=== PATIENT | male | born 1950 | race Caucasian/White ===

== ENCOUNTER 2023-01-11 09:47 | Outpatient (CLI) | payer MEDICARE, BC, SELFPAY | END 2023-01-11 09:48 | disposition home or self-care (01) | PROVIDERS: PCP Internal Medicine; Visit Provider Family Medicine | DX: E11.9 Type 2 diabetes mellitus without complications (principal); I10 Essential (primary) hypertension; E78.5 Hyperlipidemia, unspecified; E66.9 Obesity, unspecified; Z13.0 Encounter for screening for diseases of the blood and blood-forming organs and certain disorders involving the immune mechanism; Z13.21 Encounter for screening for nutritional disorder; Z13.29 Encounter for screening for other suspected endocrine disorder; R97.20 Elevated prostate specific antigen [PSA] | CPT/HCPCS: 80053; 80061; 82607; 84153; 84443 ==

== ENCOUNTER 2023-03-09 08:20 | Outpatient (CLI) | payer MEDICARE, BC, SELFPAY | END 2023-03-09 08:21 | disposition home or self-care (01) | LOC: NFLDREF 03-10 15:26 | PROVIDERS: PCP Internal Medicine; Referring Provider Internal Medicine; Visit Provider Internal Medicine | DX: E11.9 Type 2 diabetes mellitus without complications (principal) | CPT/HCPCS: 80061 ==

== ENCOUNTER 2023-10-01 18:31 | Emergency (ER) | payer MEDICARE, BC, SELFPAY ==
[2023-10-01] VITALS (15 sets, daily range): BP systolic 168–210; BP diastolic 69–112; PULSE 62–96; RESP 20; TEMP 36.3; O2SAT 94–98; BMI 31.6
--- NOTE | 2023-10-01 18:54 | CRLHL7_ITS ---
For Patients: As a result of the Cures Act, medical imaging exams and procedure reports are released immediately into your electronic medical record. You may view this report before your referring provider. If you have questions, please contact your health care provider. INDICATION: Short of breath COMPARISON: 03/29/2020 TECHNIQUE: PA and lateral 2 view chest radiograph. FINDINGS: The lungs are well expanded. No focal consolidations. No pulmonary edema. No pleural effusion. No pneumothorax. No pneumomediastinum. Unchanged cardiomediastinal silhouette. Abandoned epicardial pacing leads. Bones: Median sternotomy wires with plate and screw fixation as well. IMPRESSION: Lungs are clear. Postoperative mediastinum. Dictated by Patricia Hua MD @ 10/01/2023 7:36:51 PM (Electronically Signed)
--- NOTE | 2023-10-01 18:56 | ED_ITS ---
HPI - General Adult General Chief complaint: Chest Pain Stated complaint: chest pain, skipped heartbeats Time Seen by Provider: 10/01/23 18:36 Source: patient Mode of arrival: ambulatory Limitations: no limitations History of Present Illness HPI narrative: 73-year-old male with a history of coronary artery disease status post stenting in 2019 presents today with palpitations. He states that his heart has been sk ipping beats since yesterday. He states the last time this occurred so frequently was right before he had a heart attack. He denies chest pain or shortness of breath. States that he does feel more fatigued than usual, but that has been going on for longer than 2 days. He denies fevers or chills. No nausea or vomiting. He denies dizziness or diaphoresis. Appetite has been normal. He denies any diarrhea or urinary symptoms. He denies coughing. Past medical history significant for coronary artery disease status post stenting, insulin-dependent type 2 diabetes, cataracts, hypertension, h yperlipidemia, reflux esophagitis. Related Data Home Medications Medication Instructions Recorded Confirmed ascorbate calcium (vitamin C) 500 500 mg PO QDAY 01/11/23 01/20/23 mg tablet calcium carbonate 500 mg calcium 500 mg PO QDAY 01/11/23 01/20/23 (1,250 mg) chewable tablet (Calcium 500) cholecalciferol (vitamin D3) 100 100 mcg PO QDAY 01/11/23 01/20/23 mcg (4,000 unit) tablet gqdduucf-kevtgmfg-hur C 250 tab PO 01/11/23 01/20/23 mg-herbal no.124 11.66 mg chewable tablet (Airborne Gummy) multivitamin with minerals-folic 1 tab PO QDAY 01/11/23 01/20/23 acid 120 mcg chewable tablet (Centrum Adult 50 Plus Fresh-Fruity) semaglutide 0.25 mg or 0.5 mg (2 0.5 mg subcut QWEEK 01/11/23 01/20/23 mg/1.5 mL) subcutaneous pen injector (Ozempic) turmeric and gerald PO 01/11/23 01/20/23 vitamin B complex 1 tab PO QDAY 01/11/23 01/20/23 zinc gluconate 50 mg tablet 50 mg PO QDAY 01/11/23 01/20/23 Previous Rx's Medication Instructions Recorded clopidogrel 75 mg tablet 75 mg PO QDAY #90 tabs 02/21/23 empagliflozin 25 mg tablet 25 mg PO QAM #90 tabs 02/21/23 (Jardiance) insulin detemir U-100 100 unit/mL 46 unit (0.46 mL) subcut QHS #45 mL 02/21/23 (3 mL) subcutaneous pen (Levemir FlexPen) losartan 25 mg tablet 25 mg PO QDAY #90 tabs 02/21/23 metoprolol succinate 100 mg 100 mg PO QDAY #90 tabs 02/21/23 tablet,extended release 24 hr rosuvastatin 20 mg tablet 20 mg PO QDAY #90 tabs 02/21/23 omeprazole 20 mg capsule,delayed 40 mg (2 x 20 mg) PO QDAY #180 caps 07/07/23 release Allergies Allergy/AdvReac Type Severity Reaction Status Date / Time No Known Allergies Allergy Unknown Unverified 01/20/23 13:01 Review of Systems Status of ROS: Reports: 10 or more systems reviewed and unremarkable except as noted in History and below [facility] Medical History 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 - Anal fistula (ICD-10) Surgical History S/P cataract extraction ?Z98.49 - Cataract extraction status, unspecified eye (ICD-10) History of tonsillectomy and adenoidectomy ?Z90.89 - Acquired absence of other organs (ICD-10) History of coronary artery stent placement (2001) ?Z95.5 - Presence of coronary angioplasty implant and graft (ICD-10) History of coronary artery bypass surgery (03/29/20) ?Z95.1 - Presence of aortocoronary bypass graft (ICD-10) Social History Smoking Status: Former smoker Do you use any of these nicotine containing products: None How often do you have a drink containing alcohol: monthly or less How often do you have six or more drinks on one occasion: Never AUDIT-C Alcohol total score: 1 Non-prescribed substance use: denies use Little interest or pleasure in doing things: not at all Feeling down, depressed, or hopeless: not at all Exam Narrative: Exam Narrative: Well-nourished well-developed patient in no acute distress. Alert and oriented. Answers questions appropriately. Mood and affect are appropriate. Thoughts are goal oriented and rational. No tangential or magical thinking noted. Patient speaks in full sentences without needing to catch his breath. He does not appear ill or toxic. HEENT: Normocephalic atraumatic. Pupils are equally round reactive to light. Extraocular muscles are intact. Conjunctivae are moist without any icterus noted. Moist mucous membranes. Posterior pharynx is normal. Neck is soft without any lymphadenopathy or thyromegaly. No masses are appreciated. Cardiovascular: Heart is regular rate, he does have multiple recurrent extra beats. S1-S2 present without any obvious murmurs. Lungs: Clear to auscultation bilaterally no wheezes rhonchi or rales are appreciated. Patient takes deep breaths without any discomfort. Abdomen: Soft and nontender, nondistended, protuberant with normal bowel sounds. No guarding or rebound. No masses or organomegaly appreciated. Very strong abdominal pulse with no bruit. Extremities: Bilateral lower extremities are without edema. Normal DP and PT pulses. Skin: Well perfused without any obvious rashes. Const: Vital Signs, click to edit/add: Vital Signs - 24 hr 10/01/23 18:40 10/01/23 18:54 10/01/23 19:18 Temperature 97.3 F L Pulse Rate 63 Pulse Rate [Pulse Oximeter] 96 Respiratory Rate 20 Blood Pressure 193/81 H Blood Pressure [Le ft Upper Arm] 210/112 H Pulse Oximetry 98 95 [facility] 10/01/23 19:26 10/01/23 19:30 10/01/23 19:33 Temperature Pulse Rate 65 72 68 Pulse Rate [Pulse Oximeter] Respiratory Rate Blood Pressure 188/69 H Blood Pressure [Le ft Upper Arm] Pulse Oximetry 97 97 96 [facility] 10/01/23 19:34 10/01/23 19:45 10/01/23 19:48 Temperature Pulse Rate 66 62 64 Pulse Rate [Pulse Oximeter] Respiratory Rate Blood Pressure 175/73 H Blood Pressure [Le ft Upper Arm] Pulse Oximetry 95 95 97 [facility] 10[facility]01/23 20:00 10/01/23 20:02 Temperature Pulse Rate 66 72 Pulse Rate [Pulse Oximeter] Respiratory Rate Blood Pressure 172/94 H Blood Pressure [Le ft Upper Arm] Pulse Oximetry 94 95 Oxygen Delivery Me thod Course Course ED Course: EKG, read by me, shows sinus rhythm in a pattern of bigeminy, pre hematuria ventricular complexes, pulse of 90. Troponin is within normal limits. Chest x-ray, read by me, shows no acute pathology. Labs are unremarkable. IV established and patient received 500 mL of normal saline. Patient did fluctuate between normal sinus rhythm and bigeminy. He remained completely asymptomatic during his stay in the ER aside from feeling extra heartbeats. Again patient is chest pain-free, no shortness of breath and no other discomfort. The last thing we did was because of his strong abdominal pulses I did do an abdominal ultrasound to look at his aorta which does look normal according to the tech, final reading pending. I did consult with Dr. Fry, slime plant operator helper at [facility], who recommended a Holter monitor and follow-up with cardiology this coming week. Patient is already on metoprolol 100 mg daily, will continue this dose for now. Discussed with patient and his are findings today and patient felt very comforted that he had normal troponins and lab work. He felt comfortable going home. He denies any feelings of doom. Vital Signs Vital signs: Initial Vital Signs Temperature 97.3 F L 10/01/23 18:40 Temperature Source Temporal Artery Scan 10/01/23 18:40 Pulse Rate 96 10/01/23 18:40 Pulse Rhythm Irregular 10/01/23 18:40 Respiratory Rate 20 10/01/23 18:40 Blood Pressure 210/112 H 10/01/23 18:40 Blood Pressure Mean 144 H 10/01/23 18:40 Blood Pressure Position Sitting 10/01/23 18:40 Pulse Oximetry 98 10/01/23 18:40 Oxygen Delivery Method Room Air 10/01/23 18:40 Vital Signs Temperature 97.3 F L 10/01/23 18:40 Pulse Rate 96 10/01/23 18:40 Respiratory Rate 20 10/01/23 18:40 Blood Pressure 210/112 H 10/01/23 18:40 Pulse Oximetry 98 10/01/23 18:40 Oxygen Delivery Method Room Air 10/01/23 18:40 Temperature 97.3 F L 10/01/23 18:40 Pulse Rate 72 10/01/23 20:02 Respiratory Rate 20 10/01/23 18:40 Blood Pressure 172/94 H 10/01/23 20:02 Pulse Oximetry 95 10/01/23 20:02 Oxygen Delivery Method Room Air 10/01/23 18:40 Medications Administered Medications: Discontinued Medications Generic Name Dose Route Start Last Admin Trade Name Pérez PRN Reason Stop Dose Admin Sodium Chloride 500 mls @ 500 mls/hr 10/01/23 18:55 10/01/23 20:05 0.9 % Sodium Chloride 500 Ml IV 10/01/23 19:54 Infused .Q1H ONE Infusion Medical Decision Making MDM Narrative Medical decision making narrative: 73-year-old male with palpitations, bigeminy and PVCs noted on workup today. The symptoms have been going on for over 24 hours. Patient will be discharged home with a 48 hour Holter monitor, continue on beta- rogerio. Follow-up with cardiology this week. Medical Records Medical records reviewed: Yes I reviewed the patient's medical records Lab Data Lab results reviewed: Yes I reviewed the patient's lab results Labs: Lab Results 10/01/23 10/01/23 10/01/23 Range/Units 18:50 18:55 19:40 WBC 10.56 (4.50-11.00) K/uL RBC 5.84 (4.30-5.90) m/uL Hgb 17.9 H (13.5-17.5) gm/dL Hct 52.8 (37.0-53.0) % MCV 90 (80-100) fL MCH 31 (26-34) pg MCHC 34 (32-36) gm/dL RDW Coeff of Mae 12.1 (11.5-15.5) % Plt Count 186 (140-440) K/uL Neut % (Auto) 42.1 (42.0-72.0) % Lymph % (Auto) 42.5 (20-44) % [place] % (Auto) 10.5 (0.0-11.0) % Eos % (Auto) 4.5 (0.0-7.0) % Baso % (Auto) 0.3 (0.0-3.0) % Neut # (Auto) 4.44 (1.7-7.0) K/uL Lymph # (Auto) 4.49 H (0.90-2.90) K/uL [place] # (Auto) 1.10 H (0.00-0.90) K/UL Eos # (Auto) 0.48 (0.00-0.50) K/uL Baso # (Auto) 0.03 (0.00-0.30) K/uL Abs Immat Gran (auto) 0.01 (0.00-0.30) K/uL Imm/Tot Granulo (auto) 0.1 % Sodium 139 (135-149) mmol/L Potassium 3.7 (3.6-5.1) mmol/L Chloride 106 (96-114) mmol/L Carbon Dioxide 23 (20-32) mmol/L Anion Gap 10 (7-15) mEq/L BUN 11 (7-30) mg/dL Creatinine 0.8 (0.5-1.5) mg/dL Estimated Creat Clear 59.67 Estimated GFR 92 ml/min Glucose 170 H (60-115) mg/dL Calcium 9.2 (8.4-10.6) mg/dL Magnesium 1.9 (1.5-2.6) mg/dL Total Bilirubin 0.8 (0.1-1.5) mg/dL Direct Bilirubin 0.0 (0.0-0.5) mg/dL AST 52 H (12-35) U/L ALT 53 H (4-50) U/L Alkaline Phosphatase 140 (40-150) U/L Troponin I 0.01 (0.01-0.04) ng/mL C-Reactive Protein < 0.5 L (0.5-1.0) mg/dL NT-Pro-B Natriuret Pep 281 pg/mL Total Protein 7.7 (6.0-8.3) g/dL Albumin 4.7 (3.3-5.0) g/dL TSH 1.730 (0.270-4.20) uIU/mL Urine Color Yellow (Yellow) Urine Appearance Clear (Clear) Urine pH 6.0 (5.0-8.5) Ur Specific [place] 1.020 (1.000-1.030) Urine Protein 2+ A (Negative) Urine Glucose (UA) 2+ A (Negative) Urine Ketones Negative (Negative) Urine Blood Trace-intact A (Negative) Urine Nitrite Negative (Negative) Urine Bilirubin Negative (Negative) Urine Urobilinogen 0.2 (0.2-1.0) Ur Leukocyte Esterase Negative (Negative) Urine RBC 0-2 (0-2) Urine WBC 0-2 (0-5) Ur Squamous Epith Cells Few (None-Few) Urine Bacteria None (None) POC Troponin I 0.02 (0.01-0.04) ng/ml Imaging Data Chest x-ray: Attestation: I have reviewed the pertinent imaging results. Radiologist's impression: PA and lateral 2 view chest radiograph. FINDINGS: The lungs are well expanded. No focal consolidations. No pulmonary edema. No pleural effusion. No pneumothorax. No pneumomediastinum. Unchanged cardiomediastinal silhouette. Abandoned epicardial pacing leads. Bones: Median sternotomy wires with plate and screw fixation as well. IMPRESSION: Lungs are clear. Postoperative mediastinum. ECG Data Attestation: I personally reviewed and interpreted this ECG as follows: Discharge Plan Discharge Clinical Impression: Palpitation, Frequent PVCs, Bigeminy Patient Disposition: Home, Self-Care Condition: Stable Additional Instructions: You will be sent home with a 48 hour heart monitor today. It is recommended that 1st thing Monday morning you call your slime plant operator helper to set up a follow-up appointment so that you are seen this week. If you develop chest pain, shortness of breath, nausea, vomiting, sweating or any other concerning symptoms you should return to the ER right away. Do your best to stay well hydrated. Prescriptions: No Action vitamin B complex Tablet 1 tab PO QDAY cholecalciferol (vitamin D3) 100 mcg (4,000 unit) tablet 100 mcg PO QDAY Centrum Adult 50 Fresh-Fruity 120 mcg tablet,chewable 1 tab PO QDAY zinc gluconate 50 mg tablet 50 mg PO QDAY Airborne Gummy 250-11.66 mg tablet,chewable PO ascorbate calcium (vitamin C) 500 mg tablet 500 mg PO QDAY calcium carbonate [Calcium 500] 500 mg calcium (1,250 mg) tablet,chewable 500 mg PO QDAY turmeric and gerald PO Ozempic 0.25 mg or 0.5 mg(2 mg/1.5 mL) pen injector 0.5 mg subcut QWEEK clopidogrel 75 mg tablet 75 mg PO QDAY Qty: 90 3RF Jardiance 25 mg tablet 25 mg PO QAM Qty: 90 3RF Levemir FlexPen 100 unit/mL (3 mL) insulin pen 46 unit subcut QHS Qty: 45 4RF losartan 25 mg tablet 25 mg PO QDAY Qty: 90 4RF metoprolol succinate 100 mg tablet extended release 24 hr 100 mg PO QDAY Qty: 90 3RF rosuvastatin 20 mg tablet 20 mg PO QDAY Qty: 90 3RF omeprazole 20 mg capsule,delayed release(DR/EC) 40 mg PO QDAY Qty: 180 1RF Follow Up/Referrals: Arpita Mast MD [Primary Care Provider] - [facility]one [facility]: [facility]
--- NOTE | 2023-10-01 19:00 | CRLHL7_ITS ---
For Patients: As a result of the Cures Act, medical imaging exams and procedure reports are released immediately into your electronic medical record. You may view this report before your referring provider. If you have questions, please contact your health care provider. Examination: US abdominal aorta Indication: Bounding abdominal pulse Technique: Rodriguez scale and color Doppler images of the aorta and common iliac arteries are obtained. Comparison: CT 03/07/2014 Findings: Proximal aorta: 2.6 x 2.8 cm Mid aorta: 1.9 x 1.8 cm Distal aorta: 1.8 x 2.1 cm Right common iliac artery: 1.3 x 1.6 cm Left common iliac artery: 1.4 x 1.4 cm Recommended imaging interval for ectatic aorta: 2.5-2.9 cm: 5 years Impression: No aneurysm. Dictated by Ho Gomez MD @ 10/01/2023 8:39:47 PM (Electronically Signed)
[2023-10-01] MEDS: 0.9 % SODIUM CHLORIDE 500 ML 500 ML IV (19:05)
[2023-10-01 19:06] LABS: Basophils Absolute Auto 0.03 K/uL (0.00-0.30); Basophils Percent Auto 0.3 % (0.0-3.0); Eosinophils Absolute Auto 0.48 K/uL (0.00-0.50); Eosinophils Percent Auto 4.5 % (0.0-7.0); Hematocrit 52.8 % (37.0-53.0); Hemoglobin* 17.9 gm/dL (13.5-17.5); Immature Granulocytes Abs Auto 0.01 K/uL (0.00-0.30); Immature Granulocytes Pct Auto 0.1 %; Lymphocytes Absolute Auto 4.49 K/uL (0.90-2.90); Lymphocytes Percent Auto 42.5 % (20-44); Mean Corpuscular HGB Conc 34 gm/dL (32-36); Mean Corpuscular Hemoglobin 31 pg (26-34); Mean Corpuscular Volume 90 fL (80-100); Monocytes Percent Auto 10.5 % (0.0-11.0); Neutrophils Absolute Auto 4.44 K/uL (1.7-7.0); Neutrophils Percent Auto 42.1 % (42.0-72.0); Platelet Count* 186 K/uL (140-440); RDW Coefficient of Variation % 12.1 % (11.5-15.5); Red Blood Count 5.84 m/uL (4.30-5.90); White Blood Count* 10.56 K/uL (4.50-11.00)
[2023-10-01 19:08] LABS: Troponin, Point-of-Care* 0.02 ng/ml (0.01-0.04)
[2023-10-01 19:08] LABS: Slide Review Reflex No
[2023-10-01 19:21] LABS: Albumin* 4.7 g/dL (3.3-5.0); Chloride* 106 mmol/L (96-114); Sodium* 139 mmol/L (135-149)
[2023-10-01 19:22] LABS: Potassium* 3.7 mmol/L (3.6-5.1)
[2023-10-01 19:23] LABS: Magnesium* 1.9 mg/dL (1.5-2.6)
[2023-10-01 19:24] LABS: Anion Gap 10 mEq/L (7-15); Aspartate Amino Transferase* 52 U/L (12-35); Bilirubin Total* 0.8 mg/dL (0.1-1.5); Carbon Dioxide* 23 mmol/L (20-32); Creatinine* 0.8 mg/dL (0.5-1.5); Est. Creatinine Clearance* 59.67; Estimated Glomerular Filt Rate 92 ml/min; Total Protein* 7.7 g/dL (6.0-8.3)
[2023-10-01 19:25] LABS: Alanine Aminotransferase* 53 U/L (4-50); Alkaline Phosphatase* 140 U/L (40-150); Blood Urea Nitrogen* 11 mg/dL (7-30); Calcium* 9.2 mg/dL (8.4-10.6); Glucose* 170 mg/dL (60-115)
[2023-10-01 19:28] LABS: C Reactive Protein* < 0.5 mg/dL (0.5-1.0)
[2023-10-01 19:36] LABS: Troponin I* 0.01 ng/mL (0.01-0.04)
--- NOTE | 2023-10-01 19:38 | ED.NURSE ---
pt report given to oncrayne RN
[2023-10-01 19:39] LABS: NT Pro B Type NatriureticPept* 281 pg/mL
[2023-10-01 19:48] LABS: Appearance Urine Clear (Clear); Bilirubin Urine Negative (Negative); Blood Urine Trace-intact (Negative); Color Urine Yellow (Yellow); Glucose Urine 2+ (Negative); Ketones Urine Negative (Negative); Leukocyte Esterase Urine Negative (Negative); Nitrite Urine Negative (Negative); Protein Urine 2+ (Negative); Urobilinogen Urine 0.2 (0.2-1.0)
[2023-10-01 19:55] LABS: RBC Urine 0-2 (0-2); Squamous Epithelial Cell Urine Few (None-Few); WBC Urine 0-2 (0-5)
== END 2023-10-01 21:20 | disposition home or self-care (01) ==
PROVIDERS: Emergency Provider Family Medicine; PCP Internal Medicine
DX: R00.2 Palpitations (principal); I49.3 Ventricular premature depolarization
CPT/HCPCS: 36415; 71046; 76775; 80048; 80076; 81001; 83735; 83880; 84443; 84484; 85025; 86140; 87086; 93005; 93225; 93226; 94761; 99284; 99285; J7030

== ENCOUNTER 2024-02-01 10:38 | Outpatient (CLI) | payer MEDICARE, BC, SELFPAY ==
--- OUTSIDE RECORDS SUMMARY | 2024-02-01 10:40 | XMS_ITS | Clinical Summary ---
Author Name Unknown Organization [employer] [facility] Address [place], [place] [address] Care Team Providers Care Rubber Stamp Assembler Name Role Phone Elliot Garber MD Primary Care Provider [phone] Allergies Active Allergy Reactions Criticality Noted Date Comments Atorvastatin *Unknown 08/14/2018 Metformin *Unknown 08/14/2018 Simvastatin *Unknown 08/14/2018 Ezetimibe GI Upset 12/07/2006 Medications Medication Sig Dispensed Refills Start Date End Date Status nitroglycerin (NITROSTAT) 0.4 mg sublingual tabletIndications:C oronary artery disease, angina presence unspecified, unspecified vessel or lesion type, unspecified whether [place] or transplanted heart Place 1 tablet under the tongue every 5 minutes if needed for Chest Pain. 100 tablet 3 01/28/2020 Active omeprazole (PRILOSEC) 20 mg Delayed-Release capsule Take 20 mg by mouth 2 times daily before meals. Active empagliflozin (JARDIANCE) 25 mg tablet Take 1/2 tablet by mouth daily Active vitamin B complex (SUPER B [id number] ORAL) Take 1 tablet by mouth once daily. Active insulin detemir U-100 (LEVEMIR FLEXTOUCH U-100 INSULN) 100 unit/mL (3 mL) penIndications:Insu jose dependent type 2 diabetes mellitus (HC) Inject 18 Units subcutaneous once daily in the evening. 3 mL 04/03/2020 Active semaglutide (OZEMPIC) 2 mg/1.5 mL (0.25mg or 0.5mg doses) pen Inject subcutaneous. 01/21/2022 Active clopidogreL (PLAVIX) 75 mg tablet Take 1 Tablet (75 mg) by mouth once daily. 0 01/20/2023 Active metoprolol succinate (Toprol XL) 100 mg Sustained-Release tablet Take 1 Tablet (100 mg) by mouth once daily. 0 01/20/2023 Active cholecalciferol (Vitamin D) 1,000 unit capsule Take 100 mcg by mouth once daily. Active mv-min/folic/K1/lyc open/lutein (CENTRUM SILVER MEN ORAL) Take 1 Tablet by mouth once daily. Active zinc gluconate 50 mg tablet Take 50 mg by mouth once daily. Active ascorbic acid, vitamin C, (Vitamin C) 500 mg tablet Take 500 mg by mouth once daily. Active calcium carbonate 500 mg calcium (1,250 mg) capsule Take 500 mg by mouth three times daily with meals. Active aljtjzby-hoindy-jdn ck pepper 125 mg-6 mg- 50 mcg chew Chew by mouth. Activ e semaglutide (Ozempic) 2 mg/1.5 mL pen Inject 0.25 mg subcutaneous once weekly. Active empagliflozin (Jardiance) 25 mg tablet Take 25 mg by mouth once daily. Active rosuvastatin (CRESTOR) 20 mg tablet Take 1 Tablet (20 mg) by mouth at bedtime. 10/04/2023 Active losartan (COZAAR) 50 mg tabletIndications:C oronary artery disease involving [place] coronary artery of [place] heart without angina pectoris Take 1.5 Tablets (75 mg) by mouth once daily. 135 Tablet 1 10/06/2023 Active spironolactone (ALDACTONE) 25 mg tabletIndications:E ssential hypertension Take 1 Tablet (25 mg) by mouth once daily. 90 Tablet 3 10/19/2023 Active Active Problems Patient Care Coordination No te Formatting of this note migh t be different from the original. HF/Structural/Prevention Research Eligibility Review Date: 09/12/19 Upcoming Visit Location: [facility] Age: 69 y.o. Insurance: Medicare HF: DNQ Structural: DNQ Prevention: Triglycerides: HDL: Non-HDL: LDL: A1c: Diabetes: Yes Prominent:Potential - Stent 2001 Problem Noted Date Diagnosed Date Coronary artery disease invo lving [place] coronary artery of [place] heart without angina pectoris 05/01/2020 Hx of CABG 05/01/2020 NSTEMI (non-ST elevated myocardial infarction) 0 03/29/2020 Insulin dependent type 2 diabetes mellitus 03/29 Cataract, nuclear sclerotic senile, right 2019 Morbid obesity due to excess calories 10/04/2019 Cataract, nuclear sclerotic senile, left 018 Unspecified essential hypertension 08/18/2007 ARTERIOSCLEROTIC HEART DISEASE/S/P STENT RCA 200 2 12/07/2006 Acute myocardial infarction of other specified sites, episode of care unspecified 12/07/2006 Pure hyperglyceridemia 12/07/2006 Reflux esophagitis 12/07/2006 Other abnormal glucose 12/07/2006 Encounters Date Type Department Care Team Description 02/01/2024 10:00 AM CDT Office Visit [facility] [place] [facility] [address] [facility] [place] [address] Sudeep López MD Arrived 11/06/2023 Telephone [facility] [address] [place] [address] [place] [address] Sudeep López MD Results 11/03/2023 1:00 PM ANIMAL HUSBANDRY MANAGER Ancillary Procedure [facility] [address] [place] [address] 11/03/2023 Travel from Last 3 Months Immunizations Name Administration Dates Next Due Tdap 08/17/2007 Family History Medical History Relation Name Comments Heart Disease Father pacemaker Coronary artery disease Mother sten ts Glaucoma Mother Relation Name Status Comments Father Mother Social History Tobacco Use Types Packs/Day Years Used Date Smoking Tobacco: Former Cigarettes 0.5 20 0 09/25/1981 - 09/25/2001 Smokeless Tobacco: Never Comments:quit in 2001 when h e had an [place] Alcohol Use Standard Drinks/Week Comments Not Currently 0 (1 standard drink = 0.6 oz pur e alcohol) occasional PHQ-2 Answer Date Recorded PHQ-2 TOTAL SCORE 0 04/21/2020 Social Connections Answer Date Recorded Frequency of Communication with Friends and Fami ly Not on file 09/25/2021 Financial Resource Strain Answer Date R ecorded Difficulty of Paying Living Expenses Not on file 09/25/2021 Difficulty of Paying Living Expenses Not on file 09/25/2021 Sex and Gender Information Value Date Recorded Sex Assigned at Not on file Gender Identity Not on file Sexual Orientation Not on file Obstetrics History Last Filed Vital Signs Vital Sign Reading Time Taken Comments Blood Pressure 159/79 04/13/2022 10:51 AM CDT Pulse 60 04/13/2022 10:51 AM CDT Temperature 36.4 ??C (97.6 ??F) 04/13/2022 10:54 AM C DT Respiratory Rate 18 04/13/2022 10:51 AM CDT Oxygen Saturation 97% 04/13/2022 10:51 AM CDT Inhaled Oxygen Concentration - - Weight 91.6 kg (202 lb) 10/18/2023 11:15 AM ANIMAL HUSBANDRY MANAGER Height 170.2 cm (5' 7) 10/18/2023 11:15 AM ANIMAL HUSBANDRY MANAGER Body Mass Index 31.64 10/18/2023 11:15 AM ANIMAL HUSBANDRY MANAGER Plan of Treatment Health Maintenance Due Date Last Done Comments Pneumococcal series for age 65+ (1 of 2 - PCV) 1954 Hepatitis C screening for ag e 18-79 1966 Colonoscopy through age 75 1993 Zoster (shingles) series for age 50+ (1 of 2) 1998 Medicare Wellness for age 65+ 2013 Tetanus booster 08/17/2017 08/17/2007 Depression screening for age 12+ 04/21/2021 04/21/20 20 COVID-19 vaccine series ( season) 2023 12/22/2020, 12/01/2020 Influenza for age 65+ 05/26/2024 BMI (ht and wt on same day) for age 18+ 10/18/2024 10/18/2023, 01/30/2020 Lipids for age 45-75 03/29/2025 03/29/2020, 04/17/2008, 08/10/2007, Additional history exists Tdap Completed 08/17/2007 Medical Devices Implanted Type Area Field Interviewer Device Identifier Shelf Expiration Date Model / Serial / Lot [id number] - [id number] Implanted:Qty: 1 on 09/06/2018 by Hugo Rosario Jr., MD at [facility] Left: Eye [employer] 02/19/2022 [id number] / [id number] / Iol Stigma +19 Tecnis [id number] Implanted:Qty: 1 on 03/25/2020 by Hugo Rosario Jr., MD at [facility] Right: Eye [employer] [facility] 03/16/2022 [id number] / [id number] / Description:Meeta orr s 19.0D SE; 1.50D cyl Screw Sternal 2.4x16mm Sternalock [employer] - [id number] Implanted:Qty: 16 on 03/29/2020 by Rama Iglesias MD at [facility] N/A: Sternum [employer] [id number] / / Screw Sternal 2.4x18mm Sternalock [employer] - [id number] Implanted:Qty: 8 on 03/29/2020 by Rama Iglesias MD at [facility] N/A: Sternum [employer] [id number] / / Plate Sternal X 8 Hole Sternalock - [id number] Implanted:Qty: 3 on 03/29/2020 by Rama Iglesias MD at [facility] N/A: Sternum [employer] [id number]# / / Procedures Procedure Name Priority Date/Time Associated Diagnosis Comments ECHO TTE COMPLETE WO CONTRAST Routine 11/03/2023 1:34 PM ANIMAL HUSBANDRY MANAGER Coronary artery disease involving [place] coronary artery of [place] heart without angina pectoris Hx of CABG LIPID PANEL Early AM 03/29/2020 5:22 AM CDT from Last 3 Months or Most Recently Relevant to Health Maintenance Results * ECHO TTE COMPLETE WO CONTRAST (11/03/2023 1:34 PM ANIMAL HUSBANDRY MANAGER) AORTIC VALVE MEAN PG 6 mmHg EJECTION FRACTION 60 % LVEDD 4.8 cm EJECTION FRACTION 50 - 55% Anatomical Region Laterality Modality Ultrasound 11/03/2023 12:5 4 PM ANIMAL HUSBANDRY MANAGER Narrative 11/03/2023 2:01 PM ANIMAL HUSBANDRY MANAGER ECHOCARDIOGRAM DEBBIE AMEZCUA ?Accession#: ?? [id number] : ?1950 73 years Study Date: ?? 11/03/2023 12:54:17 PM Gender: M ? BP: ? 191/80 mmHg Height: 170.00 cm ? BSA: ?2.03 m? ? ? Weight: 92.00 kg ?Tech: ? MJJ ?Referring MD: SUDEEP LÓPEZ Site: ? [facility] Reading Location: MOBILE-OP Patient Location: Outpatient. Procedure: 2D, Color Doppler and Spectral Doppler. Indication for study: Coronary artery disease involving [place] coronary artery of [place] heart without angina pectoris; Hx of CABG Cardiac Rhythm: Irregular.Study quality: Technically limited. Final Impressions: 1. Technically limited exam. 2. Normal LV size, normal wall thickness, mildly reduced global systolic function with an estimated EF of 50 - 55%. 3. Right ventricular cavity size is normal, global systolic RV function is normal. Chamber Sizes and Function Normal left ventricular size, normal wall thickness, mildly reduced global systolic function with an estimated EF of 50 - 55%. Left atrial size is normal. Right ventricular cavity size is normal, global systolic RV function is normal. The right atrium is normal. Right atrial area is 17 cm? ? ?. The pulmonary artery is not well visualized. The sinus of Valsalva is normal sized. The ascending aorta is normal sized. Valves, RV Pressures and Diastolic Function The aortic valve is probably trileaflet, no stenosis and no regurgitation. The mitral valve is sclerotic, no mitral regurgitation. Spectral Doppler shows Grade 1 pattern of LV diastolic filling. The tricuspid valve is normal in structure. Tricuspid regurgitation is regurgitation is not evident. Unable to assess right ventricular systolic pressure. The pulmonic valve is not well visualized. Trace pulmonary regurgitation. Masses, Effusion, Shunts There is no pericardial effusion. The inferior vena cava is normal sized, respiratory size variation greater than 50%. No left to right shunting was detected by limited color flow Doppler interrogation of the interatrial septum. MEASUREMENTS AND CALCULATIONS 2-D Measurements and LV Function: LVID (d) 4.8 cm LV FS% (2D) ?? 26 % LVID (s) 3.6 cm LVOT diameter 2.0 cm IVS (d) ??1.1 cm HR ?62 bpm LVPW (d) 1.1 cm LA Vol index ??25 ml/m2 Ao Sinus 3.4 cm RA area ? 17 cm? ? ? Asc Ao ?? 3.6 cm LA ? 4.4 cm Diastology: Mitral ?Tissue Doppler ?Pulmonary veins E Peak 0.8 m/s ??e', Septum ? 0.07 m/s Pulm s ?72.4 cm/s A Peak 1.1 m/s ??e', Lateral ?0.08 m/s Pulm d ?39.6 cm/s E/A ?0.7 ?E/e' Average ?? 10.12 ?Pulm s/d ratio ??1.83 DT ? 324 msec Aortic Valve: Vmax ? 1.6 m/s ??ROBERT (V) ?? 1.78 cm? ? ? VTI ?0.37 m ?? ROBERT (I) ?? 1.90 cm? ? ? LVOT V max 0.9 m/s ??Max PG ?10 mmHg LVOT VTI ?? 0.22 m ?? Mean PG ?? 6 mmHg SV ? 70 ml ?Dim Index 0.61 SV index ?? 34 ml/m? ? ? CO ?4.3 l/min ?CI ?2.1 l/min/m? ? ? Mitral Valve: MVA ? 2.3 cm? ? ? MV P 1/2 ??94 msec MV Mean G 2 mmHg MV VTI ?0.32 m Tricuspid Valve and estimated PA pressures: TAPSE 1.6 cm Pulmonic Valve: PIEDV 0.9 m/s . This study was interpreted by an [facility] accredited facility. ??Final ?? Procedure Note Ho Cabrera MD - 11/03/2023 ECHOCARDIOGRAM DEBBIE MAEZCUA : 1950 73 years Study Date: 11/03/2023 12:54:17 PM Gender: M BP: 191/80 mmHg Height: 170.00 cm BSA: 2.03 m? ? ? Weight: 92.00 kg Tech: VIKAS Referring MD: SUDEEP LÓPEZ Site: [facility] Reading Location: MOBILE-OP Patient Location: Outpatient. Procedure: 2D, Color Doppler and Spectral Doppler. Indication for study: Coronary artery disease involving [place] coronary artery of [place] heartwithout angina pectoris; Hx of CABG Cardiac Rhythm: Irregular.Study quality: Technically limited. Final Impressions: 1. Technically limited exam. 2. Normal LV size, normal wall thickness, mildly reduced global systolicfunction with an estimated EF of 50 - 55%. 3. Right ventricular cavity size is normal, global systolic RV functionis normal. Chamber Sizes and Function Normal left ventricular size, normal wall thickness, mildly reduced globalsystolic function with an estimated EF of 50 - 55%. Left atrial size isnormal. Right ventricular cavity size is normal, global systolic RVfunction is normal. The right atrium is normal. Right atrial area is 17cm? ? ?. The pulmonary artery is not well visualized. The sinus of Valsalvais normal sized. The ascending aorta is normal sized. Valves, RV Pressures and Diastolic Function The aortic valve is probably trileaflet, no stenosis and no regurgitation.The mitral valve is sclerotic, no mitral regurgitation. Spectral Dopplershows Grade 1 pattern of LV diastolic filling. The tricuspid valve isnormal in structure. Tricuspid regurgitation is regurgitation is notevident. Unable to assess right ventricular systolic pressure. Thepulmonic valve is not well visualized. Trace pulmonary regurgitation. Masses, Effusion, Shunts There is no pericardial effusion. The inferior vena cava is normal sized,respiratory size variation greater than 50%. No left to right shunting wasdetected by limited color flow Doppler interrogation of the interatrialseptum. MEASUREMENTS AND CALCULATIONS 2-D Measurements and LV Function: LVID (d) 4.8 cm LV FS% (2D) 26 % LVID (s) 3.6 cm LVOT diameter 2.0 cm IVS (d) 1.1 cm HR 62 bpm LVPW (d) 1.1 cm LA Vol index 25 ml/m2 Ao Sinus 3.4 cm RA area 17 cm? ? ? Asc Ao 3.6 cm LA 4.4 cm Diastology: Mitral Tissue Doppler Pulmonary veins E Peak 0.8 m/s e', Septum 0.07 m/s Pulm s 72.4 cm/s A Peak 1.1 m/s e', Lateral 0.08 m/s Pulm d 39.6 cm/s E/A 0.7 E/e' Average 10.12 Pulm s/d ratio 1.83 DT 324 msec Aortic Valve: Vmax 1.6 m/s ROBERT (V) 1.78 cm? ? ? VTI 0.37 m ROBERT (I) 1.90 cm? ? ? LVOT V max 0.9 m/s Max PG 10 mmHg LVOT VTI 0.22 m Mean PG 6 mmHg SV 70 ml Dim Index 0.61 SV index 34 ml/m? ? ? CO 4.3 l/min CI 2.1 l/min/m? ? ? Mitral Valve: MVA 2.3 cm? ? ? MV P 1/2 94 msec MV Mean G 2 mmHg MV VTI 0.32 m Tricuspid Valve and estimated PA pressures: TAPSE 1.6 cm Pulmonic Valve: PIEDV 0.9 m/s . This study was interpreted by an [facility] accredited facility. Final Sudeep López MD ECHO ORD * (ABNORMAL) Lipid Panel AM (03/29/2020 5:22 AM CDT) [facility] CHOLESTEROL,TOTAL 122 100 - 199 mg/dL 03/29/2020 5:52 AM CDT [facility] TRIGLYCERIDES 121 <150 mg/dL 03/29/2020 5:52 AM CDT [facility] HDL CHOLESTEROL 31(L) >40 mg/dL 0 5:52 AM CDT [facility] NON-HDL CHOLESTEROL 91 <145 mg/dl 03/29/2020 5:52 AM CDT [facility] CHOL/HDL RATIO 3.94 <4.50 03/29/2020 5:52 AM CDT [facility] LDL CHOLESTEROL 67 <=130 mg/dL 03/29/2020 5:52 AM CDT [facility] PROVIDER ORDERED STATUS RANDOM 03/29/2020 5:52 AM CDT [facility] Blood BLOOD SPECIMEN / Unknown Venipuncture / Unknown 03/29/2020 5:22 AM CDT 03/29/2020 5:30 AM CDT Evans Dominguez MD CHEMISTRY [facility] [address] [place] [address], from Last 3 Months or Most Recently Relevant to Health Maintenance Advance Directives * Full Code (Latest Code Status on File) Date Activated Date Inactivated Comments 03/29/2020 4:58 AM 04/03/2020 1:55 PM Question Answer Comments Code Status Discussion: Per Advance Care Plan * Full Code Date Activated Date Inactivated Comments 03/25/2020 8:19 AM 03/26/2020 2:28 AM Question Answer Comments Code Status Discussion: Not Discussed * Full Code Date Activated Date Inactivated Comments 09/06/2018 8:35 AM 09/06/2018 3:36 PM Question Answer Comments Code Status Discussion: Not Discussed Care Teams Rubber Stamp Assembler Relationship Specialty Start Date End Date Elliot Garber MD [address] [place] [address] PCP - General Family Practice 10/05/23
--- OUTSIDE RECORDS SUMMARY | 2024-02-01 10:41 | XMS_ITS ---
Author Name Unknown Organization [facility] Address [address] [place] [address] Care Team Providers Care Geomagnetician Name Role Phone Unavailable Unavailable Unavailable Surgery Details Not on file Complications Check Surgery Details section. Procedure Estimated Blood Loss Check Surgery Details section. Procedure Findings Check Surgery Details section. Procedure Specimens Taken Check Surgery Details section.
--- OUTSIDE RECORDS SUMMARY | 2024-02-01 10:41 | XMS_ITS | Referral Summary ---
Author Name Unknown Organization [facility] Address [address] [place] [address] Care Team Providers Care Cash Processor Name Role Phone Unavailable Primary Care Provider Unavailabl e Source Comments Patient records contain information from all sites at [facility]. For routine questions regarding patient records, call [phone] during business hours, M-F 8:00 AM - 5:00 PM Central Time. Record requests for emergency care only can be directed to [phone] at any time.[facility] Encounters Date Type Department Care Team Description 02/01/2024 Clinical Communication Department of Ophthalmology in [place], [place] [address] [place] [address] Hugo Rosario Jr., M.D. from Last 3 Months Allergies Active Allergy Reactions Criticality Noted Date Comments Atorvastatin Other (see comments),Myalgia 11/14 Ezetimibe GI intolerance 12/07/2006 Metformin Other (see comments),Diarrhea 2016 Simvastatin Other (see comments),Myalgia 2008 Medications Medication Sig Dispensed Refills Start Date End Date Status aspirin 81 mg capsule Take by mouth 2 (two) times a day. 10/21/2008 Active doxazosin (CARDURA) 2 mg tablet Take by mouth. 02/23/2009 Active co-enzyme Q-10 (CO Q-10) 100 mg capsule Take by mouth. 11/12/2008 Active hydroCHLOROthiazide (HYDRODIURIL) 25 mg tablet Take by mouth. 10/21/2008 Active atorvastatin (LIPITOR) 80 mg tablet Take by mouth. 02/23/2009 Active gemfibroziL (LOPID) 600 mg tablet Take by mouth. 02/23/2009 Active metoprolol tartrate (LOPRESSOR) 50 mg tablet Take by mouth 2 (two) times a day. 05/04/2009 Active glipiZIDE (GLUCOTROL) 10 mg tablet 08/20/2018 Active omega-3 fatty acids 500 mg capsule once a day 04/02/2002 Active isosorbide mononitrate (IMDUR) 60 mg 24 hr tablet Take 180 mg by mouth daily. Active empagliflozin (JARDIANCE) 25 mg tablet Take 25 mg by mouth every morning before breakfast. 1/2 tab daily in the morning Active zinc sulfate (ZINC-15 ORAL) Take by mouth daily. Active rosuvastatin (CRESTOR) 40 mg tablet Take 40 mg by mouth daily. Active semaglutide (Ozempic) 0.25 mg or 0.5 mg(2 mg/1.5 mL) pen injector injection Inject under the skin every 7 (seven) days. Active insulin detemir U-100 (LEVEMIR) 100 unit/mL injection Inject 50 Units/kg under the skin at bedtime. Active B complex-vitamin (SUPER B-50) capsule Take 1 capsule by mouth daily. Active Active Problems Problem Noted Date Diagnosed Date Diabetes Mellitus NOS 02/07/2020 Social History Tobacco Use Types Packs/Day Years Used Date Smoking Tobacco: Never Assessed Social Connection and Isolation Panel [NHANES] A nswer Date Recorded Frequency of Communication with Friends and Fami ly Once a week 04/12/2019 Frequency of Social Gatherings with Friends and Family Patient declined 04/12/2019 Attends Scientologist Services Never 04/12 Active Member of Clubs or Organizations No 04/12/2019 Attends Club or Organization Meetings Not on svetlana e 04/12/2019 Marital Status Not on file 04/12/2019 AUDIT-C Answer Date Recorded Frequency of Alcohol Consumption 2-3 times a wee k 04/12/2019 Average Number of Drinks Not on file 019 Frequency of Binge Drinking Not on file 03/25 Overall Financial Resource Strain (CARDIA) Answe r Date Recorded Difficulty of Paying Living Expenses Not very [address] 04/12/2019 Exercise Vital Sign Answer Date Recorde d Days of Exercise per Week 4 days 2018 Minutes of Exercise per Session Not on file 04/12/2019 Hunger Vital Sign Answer Date Recorded Worried About Running Out of Food in the Last Ye ar Never true 04/12/2019 Ran Out of Food in the Last Year Never true 04/12/2019 PRAPARE - Transportation Answer Date Re corded Lack of Transportation (Medical) No 04/12/2019 Lack of Transportation (Non-Medical) Not on file 04/12/2019 Nutrition Answer Date Recorded Nutrition: EVOO Fat Source Unknown 11/18 Nutrition: Servings of Fruits/Vegetables per Day Not on file 11/18/2020 Dental Answer Date Recorded Dental: Regular Dentist Unknown 11/18/19 21 Education Answer Date Recorded What is the highest level of school you have completed or the highest degree you have received? Bachelor's degree (e.g., BA, AB, BS) 04/12/2019 Sex and Gender Information Value Date Recorded Sex Assigned at Not on file Gender Identity Not on file Sexual Orientation Not on file Last Filed Vital Signs Vital Sign Reading Time Taken Comments Blood Pressure 98/56 04/03/2014 6:57 AM CDT Pulse 82 04/03/2014 6:57 AM CDT Temperature - - Respiratory Rate 20 04/03/2014 6:57 AM CDT Oxygen Saturation - - Inhaled Oxygen Concentration - - Weight 28.3 kg (62 lb 6.2 oz) 04/03/2014 6:57 AM CDT Height 130 cm (4' 3.18) 04/03/2014 6:57 AM CDT Body Mass Index 16.75 04/03/2014 6:57 AM CDT Plan of Treatment Upcoming Encounters Date Type Department Care Team (Late st Contact Info) Description 02/01/2024 1:00 PM CDT Office Visit Department of Ophthalmology in [place], [place] [address] [address] Tanner Dao M.D. [address] [address] Medical Devices Implanted Type Area Fuel Cell Builder Device Identifier Shelf Expiration Date Model / Serial / Lot Pacemaker Leads Cardiac Other Heart Cardiac Stent Cardiac Stent Heart Sternal Wire Hardware e.g. pins/screws/ rods Sternum Ocular Lens Ocular Lens Eye Procedures Procedure Name Priority Date/Time Associated Diagnosis Comments EXTI BASIC METABOLIC PANEL, S/P Routine 10/27/2023 2:53 PM PEST TECHNICIAN EXTI LIPID PANEL, S Routine 03/29/2020 5 :22 AM CDT HEMOGLOBIN A1C, B Routine 02/14/2020 3:1 1 PM CDT Combined Forms Age Related Cataract Right Eye OPHTHALMOLOGY IMAGE EXAM Routine 08/24/2018 12:00 PM PEST TECHNICIAN from Last 3 Months or Most Recently Relevant to Health Maintenance Results * (ABNORMAL) Hemoglobin A1c (02/14/2020 3:11 PM CDT) Hemoglobin A1c, B 8.7(H) 4.2 - 5.6 % 02/14/2020 6:16 PM CDT [facility] Comment: Hemoglobin A1c values greater than or equal to 6.5 percent are diagnostic for diabetes mellitus. ??Diagnosis should be confirmed by repeat testing. ??In diabetic patients, HbA1c goals should be discussed with healthcare provider. Blood (Blood, Venous) 02/14/2020 3:11 PM CDT 02/14/2020 5:57 PM CDT Hugo Rosario Jr., M.D. LAB BLOOD ADD-O N [facility] [address] [place] [id number], [facility] [place] [address] [place] [address] * OPHTHALMOLOGY IMAGE EXAM (08/24/2018 12:00 PM PEST TECHNICIAN) Narrative IIMS - 09/20/2018 3:35 PM PEST TECHNICIAN This order has been created and auto-finalized to support the import of images acquired without order. The clinical documentation to support these images can be found on the encounter that produced images. Provider Not In System IMG NON RAD IMAGI NG PROCEDURES IIMS NA from Last 3 Months or Most Recently Relevant to Health Maintenance
--- OUTSIDE RECORDS SUMMARY | 2024-02-01 10:41 | XMS_ITS | Encounter Summary ---
Author Name Unknown Organization [facility] Address [address] [place] [address] Care Team Providers Care Civil Engineer Name Role Phone Unavailable Primary Care Provider Unavailabl e Encounter Details Date Type Department Care Team (Latest Contact Info) Description 02/01/2024 Clinical Communication Department of Ophthalmology in [place], [place] [address] [phone] Hugo Rosario Jr., M.D. [address] [place] [phone] Social History Tobacco Use Types Packs/Day Years Used Date Smoking Tobacco: Never Assessed Social Connection and Isolation Panel [NHANES] A nswer Date Recorded Frequency of Communication with Friends and Fami ly Once a week 04/12/2019 Frequency of Social Gatherings with Friends and Family Patient declined 04/12/2019 Attends Jewish Services Never 04/12 Active Member of Clubs [...] Date Recorded Dental: Regular Dentist Unknown 11/18/19 Education Answer Date Recorded What is the highest level of school you have completed or the highest degree you have received? Bachelor's degree (e.g., BA, AB, BS) 04/12/2019 Sex and Gender Information Value Date Recorded Sex Assigned at Not on file Gender Identity Not on file Sexual Orientation Not on file documented as of this encounter Plan of Treatment Upcoming Encounters Date Type Department Care Team (Late st Contact Info) Description 02/01/2024 1:00 PM CDT Office Visit Department of Ophthalmology in [place], [place] [address] [phone] Tanner Dao M.D. [address] [phone] documented as of this encounter Visit Diagnoses Not on filedocumented in this encounter
--- OUTSIDE RECORDS SUMMARY | 2024-02-01 10:41 | XMS_ITS | Clinical Summary ---
Author Name Unknown Organization [facility] Address [address] [place] [address] Care Team Providers Care Band Manager Name Role Phone Unavailable Primary Care Provider Unavailabl e Source Comments Patient records contain information from all sites at [facility]. For routine questions regarding patient records, call [phone] during business hours, M-F 8:00 AM - 5:00 PM Central Time. Record requests for emergency care only can be directed to [phone] at any time.[facility] Allergies Active Allergy Reactions Criticality Noted Date [...] Date Diagnosed Date Diabetes Mellitus NOS 02/07/2020 Encounters Date Type Department Care Team Description 02/01/2024 Clinical Communication Department of Ophthalmology in [place], [place] [address] [phone] Hugo Rosario Jr., M.D. from Last 3 Months Family History Medical History Relation Name Comments Glaucoma Mother Relation Name Status Comments Mother Social History Tobacco Use Types Packs/Day Years Used Date Smoking Tobacco: Never Assessed Social Connection and Isolation Panel [NHANES] A nswer Date Recorded Frequency of Communication with Friends and Fami ly Once a week 04/12/2019 Frequency of Social Gatherings with Friends and Family Patient declined 04/12/2019 Attends Zoroastrianism Services Never 04/12 Active Member of Clubs [...] CDT Office Visit Department of Ophthalmology in [place], [place] [address] [phone] Tanner Dao M.D. [address] [phone] Health Maintenance Due Date Last Done Comments CT Colonography 1948 Cologuard 1948 Colonoscopy 1948 Colorectal Cancer Screening 1948 Diabetic Office Visit with F oot Exam 1948 FIT 1948 Hepatitis C Screening 1948 Office Visit for Blood Press ure Check / Re-check 1948 Urine Albumin 1948 Pneumococcal vaccine (65+ ye ars) (1 of 2 - PCV) 1954 06/21/2011 Hepatitis B Vaccines (1 of 3 - Risk 3-dose series) 2008 Zoster Vaccines (2 of 3) 07/17/2012 05/22/2012 Hemoglobin A1C 08/16/2020 02/14/2020 COVID-19 Vaccine (4 - 2022-2 4 season) 2023 01/12/2022, 12/22/2020, 12/01/2020 Influenza Vaccine (#1) 2023 06/21/2011 Depression Screening (Annual PHQ-2) 09/25/2023 Fall Risk Screen (Annual) 09/25/2023 Dilated Eye Exam 05/24/2024 05/24/2023, 09/2022, 03/23/2022, Additional history exists Creatinine Level (Kidney Fun ction Test) 10/27/2024 10/27/2023, 10/13/2023, 04/03/2020, Additional history exists Lipid (Cholesterol) Screening 03/29/2025 03/29/2020 DTaP,Tdap,and Td Vaccines (5 - Td or Tdap) 01/13/2032 01/12/2022, 08/17/2007, 09/25/2006, Additional history exists Medical Devices Implanted Type Area Director Electrical Engineering Device Identifier Shelf Expiration Date Model / Serial / Lot Pacemaker Leads Cardiac Other Heart Cardiac Stent Cardiac Stent Heart Sternal Wire Hardware e.g. pins/screws/ rods Sternum Ocular Lens Ocular Lens Eye Procedures Procedure Name Priority Date/Time Associated Diagnosis Comments EXTI BASIC METABOLIC PANEL, S/P Routine 10/27/2023 2:53 PM NEWSPAPER VENDOR EXTI LIPID PANEL, S Routine 03/29/2020 5 :22 AM CDT HEMOGLOBIN A1C, B Routine 02/14/2020 3:1 1 PM CDT Combined Forms Age Related Cataract Right Eye OPHTHALMOLOGY IMAGE EXAM Routine 08/24/2018 12:00 PM NEWSPAPER VENDOR from Last 3 Months or Most Recently [...] Rosario Jr., M.D. LAB BLOOD ADD-O N [facility] [address] [place] [address], [facility] in [place] [address] [place] [address] * OPHTHALMOLOGY IMAGE EXAM (08/24/2018 12:00 PM NEWSPAPER VENDOR) Narrative [facility] - 09/20/2018 3:35 PM NEWSPAPER VENDOR This order has been created and auto-finalized to support the import of images acquired without order. The clinical documentation to support these images can be found on the encounter that produced images. Provider Not In System IMG NON RAD IMAGI NG PROCEDURES Performing Organization Address [facility] Co de Phone Number IIRI NA from Last 3 Months or Most Recently Relevant to Health Maintenance
== END 2024-02-01 10:39 | disposition home or self-care (01) ==
LOC: NFLDREF 10:38
PROVIDERS: PCP Family Medicine; Visit Provider Internal Medicine
DX: E78.5 Hyperlipidemia, unspecified (principal)
CPT/HCPCS: 80061

== ENCOUNTER 2025-02-21 08:39 | Outpatient (CLI) | payer MEDICARE, BC, SELFPAY | END 2025-02-21 08:40 | disposition home or self-care (01) | LOC: RAD 08:46 | PROVIDERS: PCP Family Medicine; Visit Provider Internal Medicine | DX: I25.10 Atherosclerotic heart disease of native coronary artery without angina pectoris (principal); I51.7 Cardiomegaly | CPT/HCPCS: 93306 ==